=== PATIENT | female | born 1945 | race Caucasian/White ===

== ENCOUNTER 2019-08-20 12:27 | Inpatient (IN) | payer OTHER ==
[~2019-08-20] VITALS: Ht 167.6 cm; Wt 71.0 kg
--- NOTE | 2019-08-20 12:38 | NUR ---
PT TO ROOM 12 PER [facility]. UPON ARRIVAL PT NEEDED TO URINATE. PT AMBULATED FROM [facility] COT TO BR. UA CUP GIVEN FOR CAUTION. PT C/O LOWER LEFT JAW AND TOOTH PAIN FROM DENTAL WORK PERFORMED ON THE Jul. PT IS AFRAID SHE MAY HAVE AN INFECTION. PT TOOK BP LAST FEW DAYS AND WAS RUNNING VERY LOW, THEN WENT HIGH. TODAY PT HAD CHEST PAIN UPON [facility] ARRIVAL, BUT PAIN DISAPPEARED WITH BELCHING. PT PLACED IN GOWN, TECH AT BEDSIDE FOR EKG. SBP >200. PT DENIES [facility] OR CHEST PAIN AT THIS TIME. CALL LIGHT WITH INSTRUCTIONS GIVEN, PT IN GOWN AND PLACED ON MONITOR.
[2019-08-20] MEDS ORDERED: LEVO0.5P PO (12:45)
[2019-08-20] MEDS ORDERED: SODIUM CHLORIDE FLUSH 10ML SYR IVF ONE (13:00)
[2019-08-20] MEDS ORDERED: hydrALAzine 20 MG/ML, 1ML IV ONE (13:00)
[2019-08-20 13:21] LABS: BASOPHILS # (AUTO) 0.07 x10^3/uL (0-0.1); BASOPHILS % (AUTO) 1 % (0-1); EOSINOPHILS # (AUTO) 0.37 x10^3/uL (0-0.4); EOSINOPHILS % (AUTO) 5 % (1-7); LYMPHOCYTES # (AUTO) 2.45 x10^3/uL (1-3.4); LYMPHOCYTES % (AUTO) 31 % (22-44); MD NO; MEAN CORPUSCULAR HEMOGLOBIN 30.5 pg (27.0-34.8); MEAN CORPUSCULAR HGB CONC 33.4 g/dL (32.4-35.8); MEAN CORPUSCULAR VOLUME 91.3 fL (80-100); MEAN PLATELET VOLUME 9.7 fL (7.4-10.4); MONOCYTES # (AUTO) 0.64 x10^3/uL (0.2-0.8); MONOCYTES % (AUTO) 8 % (2-9); NEUTROPHILS # (AUTO) 4.49 x10^3/uL (1.8-6.8); NEUTROPHILS % (AUTO) 56 % (42-75); PLATELET COUNT 234 x10^3/uL (130-400); RED BLOOD COUNT 5.02 x10^6/uL (3.82-5.3); RED CELL DISTRIBUTION WIDTH 14.6 % (9.6-15.2)
--- NOTE | 2019-08-20 13:30 | NUR ---
TESTING DONE. PT LYING ON CART IN NO ACUTE DISTRESS.
[2019-08-20 13:31] LABS: ALBUMIN 3.5 g/dL (3.4-5.0); ANION GAP 4 mmol/L (5-15); CHLORIDE 106 mmol/L (98-107)
[2019-08-20 13:36] LABS: ALANINE AMINOTRANSFERASE 25 U/L (12-78); ALKALINE PHOSPHATASE 113 U/L (45-117); BILIRUBIN,TOTAL 0.6 mg/dL (0.2-1.0); TOTAL PROTEIN 7.8 g/dL (6.4-8.2); TROPONIN I < 0.015 ng/mL (0.000-0.045)
[2019-08-20] MEDS ORDERED: hydrALAzine 20 MG/ML, 1ML ONE (13:44)
--- NOTE | 2019-08-20 14:04 | NUR ---
RECHECK BP, STILL >200. IV HYDRALAZINE GIVEN. BP SET TO GO OFF EVERY 15 MINUTES. WILL CONTINUE TO MONITOR.
[2019-08-20] MEDS ORDERED: OXYcodone/APAP 5/325MG TABLET PO ONE (14:30)
[2019-08-20] MEDS ORDERED: ACETAMINOPHEN 325 MG TABLET PO PRN (15:30)
[2019-08-20] MEDS ORDERED: hydrALAzine 20 MG/ML, 1ML IV PRN (15:30)
[2019-08-20] MEDS ORDERED: ENOXAPARIN 40 MG/0.4 ML SQ SCH (15:30)
[2019-08-20] MEDS ORDERED: OXYcodone/APAP 5/325MG TABLET ONE (15:38)
--- NOTE | 2019-08-20 15:41 | NUR ---
THROUGHPUT NOTE: SPOKE TO [facility], PER [facility], PT IS DENIED FOR TRANSPORT. PSN FAXED.
[2019-08-20 16:24] VITALS: BP 189/73
[2019-08-20] MEDS ORDERED: FUROSEMIDE 40 MG/4 ML IV ONE (17:00)
[2019-08-20] MEDS: LISINOPRIL 10 MG TABLET PO SCH (17:41)
[2019-08-20] MEDS: AMLODIPINE 5 MG TABLET PO SCH (17:42)
[2019-08-20 17:43] VITALS: BP 158/82
[2019-08-20 19:36] VITALS: BP 126/75
[2019-08-20 20:49] LABS: TROPONIN I < 0.015 ng/mL (0.000-0.045)
[2019-08-21 01:36] VITALS: BP 120/73
[2019-08-21 05:13] LABS: BASOPHILS # (AUTO) 0.04 x10^3/uL (0-0.1); BASOPHILS % (AUTO) 1 % (0-1); EOSINOPHILS # (AUTO) 0.42 x10^3/uL (0-0.4); EOSINOPHILS % (AUTO) 5 % (1-7); LYMPHOCYTES # (AUTO) 2.79 x10^3/uL (1-3.4); LYMPHOCYTES % (AUTO) 32 % (22-44); MD NO; MEAN CORPUSCULAR HEMOGLOBIN 30.3 pg (27.0-34.8); MEAN CORPUSCULAR HGB CONC 33.2 g/dL (32.4-35.8); MEAN CORPUSCULAR VOLUME 91.1 fL (80-100); MEAN PLATELET VOLUME 9.8 fL (7.4-10.4); MONOCYTES # (AUTO) 0.64 x10^3/uL (0.2-0.8); MONOCYTES % (AUTO) 7 % (2-9); NEUTROPHILS % (AUTO) 55 % (42-75); PLATELET COUNT 229 x10^3/uL (130-400); RED BLOOD COUNT 4.82 x10^6/uL (3.82-5.3); RED CELL DISTRIBUTION WIDTH 15.2 % (9.6-15.2)
[2019-08-21 05:20] LABS: ANION GAP 6 mmol/L (5-15); CALCIUM 8.7 mg/dL (8.5-10.1); CHLORIDE 108 mmol/L (98-107)
[2019-08-21 05:25] LABS: CHOL/HDL RATIO 3.7; CHOLESTEROL, TOTAL 199 mg/dL (140-239); HDL CHOL % 27 % (28-40); HDL CHOLESTEROL (DIRECT) 54 mg/dL (40-60); LDL CHOLESTEROL,CALCULATED 126 mg/dL (54-169); LDL/HDL RATIO 2.3 (0.5-3.0); TRIGLYCERIDES 97 mg/dL (50-200); TROPONIN I < 0.015 ng/mL (0.000-0.045); VLDL CHOLESTEROL 19 mg/dL (0-25)
[2019-08-21 07:25] VITALS: BP 145/75
[2019-08-21] MEDS ORDERED: REGADENOSON 0.4 MG/5 ML SYRINGE ONE (08:32)
[2019-08-21] MEDS ORDERED: LEVOTHYROXINE 75 MCG TABLET PO SCH (09:00)
[2019-08-21] MEDS: AMLODIPINE 5 MG TABLET PO SCH (12:38)
[2019-08-21] MEDS: LISINOPRIL 10 MG TABLET PO SCH (12:38)
[2019-08-21] MEDS ORDERED: AMLO-150 PO (13:30)
[2019-08-21] MEDS ORDERED: LISI-167 PO (13:30)
[2019-08-21 13:40] VITALS: BP 141/82
== END 2019-08-21 16:26 | disposition home or self-care (01) | DRG 305 ==
LOC: ED 14:31 → EDIP 14:32 → ED 14:50 → 5SO 16:35
PROVIDERS: ADMIT Internal Medicine Infectious Disease; ATTEND Hospitalist
DX: I16.0 Hypertensive urgency (principal); E03.9 Hypothyroidism, unspecified; R07.89 Other chest pain; K08.89 Other specified disorders of teeth and supporting structures; R68.84 Jaw pain; Z90.89 Acquired absence of other organs
CPT/HCPCS: 36415; 70100; 71045; 78452; 80048; 80053; 80061; 83880; 84484; 85025; 93005; 93017; 96374; 99285; G0378; J1650; J1940; J2785; A9502; C9898; J0360